=== PATIENT | male | born 1965 | race Caucasian/White ===

== ENCOUNTER 2017-10-28 11:06 | Day surgery (SDC) | payer BC ==
[2017-10-26 10:32] VITALS: BMI 29.1
[~2017-10-28 11:06] MED LIST: LACTATED RINGERS 1,000 ML IV SCH; LIDOCAINE 1% 20 ML VIAL (10MG/ML) FOR IV START INTRADERMA PRN; MIDAZOLAM 2 MG/2 ML VIAL IV PRN
[2017-10-28 12:44] VITALS: RESP 16; TEMP 97.6
[2017-10-28] MEDS ORDERED: GLYCOPYRROLATE 0.2 MG/ML 2 ML VIAL ONE (13:30)
[2017-10-28] MEDS ORDERED: PROPOFOL 10 MG/ML 20 ML VIAL IV ONE (13:30)
[2017-10-28] MEDS ORDERED: LIDOCAINE 1% INJ 10MG/ML (20 ML MDV) ONE (13:30)
--- NOTE | 2017-10-28 13:41 | P.PCN ---
Date of Procedure: 10/28/17 Procedure(s) Performed: BRIEF HISTORY: Patient is a 52-year-old, pleasant, white male, scheduled for an upper endoscopy as a part of evaluation of epigastric and right upper quadrant abdominal pain for the last 2 months duration. He status post gallbladder surgery for coronary dyskinesia in 2000 for. In the last 6 months he lost 40 pounds. His and scheduled for an upper endoscopy to evaluate further.. PROCEDURE PERFORMED: Esophagogastroduodenoscopy with biopsy. PREOPERATIVE DIAGNOSIS: Epigastric and right upper abdominal pain of 6 months duration, weight loss of 40 pounds. IV sedation per anesthesia. PROCEDURE: After informed consent was obtained, the patient was brought into the endoscopy unit. IV sedation was administered by Anesthesia under continuous monitoring. Initially the Olympus GIF-140 video endoscope was inserted into the mouth. Esophagus intubated without any difficulty. It was gradually advanced into the stomach and duodenum and carefully examined. The bulb and the second part of the duodenum appeared normal. Biopsies were done from the duodenum to rule out celiac disease. The scope at this time was withdrawn to the stomach, adequately insufflated with air, and upon careful examination, mucosa of the antrum, had mild gastritis and biopsies were done from this area. The body, cardia and the fundus appeared normal. The scope was then withdrawn into the esophagus. The GE junction was located at 39 cm from the incisors. The esophagus appeared normal. Biopsies were done from the distal esophagus. There were no erosions or ulcerations seen and the patient tolerated the procedure well. IMPRESSION: 1. Mild antral gastritis. 2. No evidence of esophagitis or peptic ulcer. RECOMMENDATIONS: The findings of this examination were discussed with the patient as well as his family. He was advised to follow with the biopsy results. He will be given a trial of Bentyl 10 mg twice daily for the abdominal pain the meantime he will continue with Prilosec on a daily basis. He 'll be seen in the office in 4 weeks..
[2017-10-28 14:00] VITALS: BP 103/64; PULSE 91
== END 2017-10-28 14:48 | disposition home or self-care (01) ==
LOC: ORWHC2ENDO 11:06
PROVIDERS: ATTEND Internal Medicine Gastroenterology
DX: K29.50 Unspecified chronic gastritis without bleeding (principal); K21.9 Gastro-esophageal reflux disease without esophagitis; I10 Essential (primary) hypertension; F17.200 Nicotine dependence, unspecified, uncomplicated; Z79.899 Other long term (current) drug therapy
CPT/HCPCS: 43239; J2001; J2704; 88305

== ENCOUNTER 2018-01-25 09:47 | Day surgery (SDC) | payer BC ==
[2018-01-23 17:26] VITALS: BMI 26.2
[~2018-01-25 09:47] MED LIST changes: -MIDAZOLAM 2 MG/2 ML VIAL IV PRN
[2018-01-25 10:49] VITALS: RESP 16; TEMP 97.8
[2018-01-25] MEDS ORDERED: PROPOFOL 10 MG/ML 20 ML VIAL IV ONE (11:21)
--- NOTE | 2018-01-25 11:48 | P.PCN ---
Date of Procedure: 01/25/18 Procedure(s) Performed: BRIEF HISTORY: Patient is a 52-year-old pleasant, white male scheduled for an elective colonoscopy as a part of follow-up of large polyp in the ileocecal valve noted on a repeat screening colonoscopy in October 2017. The polyp was partially removed and the biopsy revealed adenoma. He is hence scheduled for a surveillance colonoscopy today. PROCEDURE PERFORMED: Colonoscopy with snare polypectomy and argon plasma coagulation. PREOPERATIVE DIAGNOSIS: Follow-up large colon polyp on the ileocecal valve noted in October 2079. IV sedation per Anesthesia. PROCEDURE: After informed consent was obtained, the patient, was brought into the endoscopy unit. IV sedation was administered by Anesthesia under continuous monitoring. Digital rectal examination was normal. Initially the Olympus CF- 160 flexible video colonoscope was then inserted in the rectum, gradually advanced into the cecum without any difficulty. Careful examination was performed as the scope was gradually being withdrawn. Ileocecal valve and the appendiceal orifice were visualized and appeared normal. Prep was excellent. Mucosa of the cecumasappeared normal. On the ileocecal valve there was a 2 cm flat residual polyp identified. Part of the polyp was removed by snare polypectomy followed by argon plasma coagulation until complete obliteration of the polyp was accomplished. The ascending colon, transverse colon appeared normal. In the span flexure there was a 5 mm polyp removed by snare polypectomy. In the sigmoid colon there was another 5 mm polyp removed by snare polypectomy. the descending colon, sigmoid colon, and rectum appeared normal. Retroflexion was performed in the rectum and no lesions were seen. The patient tolerated the procedure well. IMPRESSION: 2 cm residual flat polyp on the ileocecal valve status post piecemeal snare polypectomy followed by argon plasma coagulation 5 mmpolyp in the splenic flexure polyp status post polypectomy 5 mmsigmoidolon polyp status post snare polypectomy RECOMMENDATIONS: Findings of this examination were discussed with the patient as well as his family. He was advised to follow with the biopsy results and have a repeat colonoscopy in one year
[2018-01-25 12:21] VITALS: BP 128/84; PULSE 66
== END 2018-01-25 12:26 | disposition home or self-care (01) ==
LOC: ORWHC2ENDO 09:47
PROVIDERS: ATTEND Internal Medicine Gastroenterology
DX: D12.0 Benign neoplasm of cecum (principal); D12.3 Benign neoplasm of transverse colon; K63.5 Polyp of colon; Z86.010 Personal history of colon polyps; I10 Essential (primary) hypertension; K21.9 Gastro-esophageal reflux disease without esophagitis; Z79.899 Other long term (current) drug therapy
CPT/HCPCS: 88305; 45385; 45388; J2704

== ENCOUNTER 2019-06-15 13:08 | Day surgery (SDC) | payer OTHER ==
[2019-06-13 12:34] VITALS: BMI 23.7
[~2019-06-15 13:08] MED LIST changes: +LIDOCAINE 1% (10MG/ML) FOR IV START INTRADERMA PRN; -LIDOCAINE 1% 20 ML VIAL (10MG/ML) FOR IV START INTRADERMA PRN
[2019-06-15 13:28] VITALS: TEMP 98.2
[2019-06-15] MEDS ORDERED: PROPOFOL 10 MG/ML 20 ML VIAL IV ONE (14:17)
[2019-06-15 14:51] VITALS: RESP 16
[2019-06-15 15:03] VITALS: BP 109/46; PULSE 65
--- NOTE | 2019-06-15 15:21 | P.PCN ---
Date of Procedure: 06/15/19 Procedure(s) Performed: BRIEF HISTORY: Patient is a 54-year-old pleasant male scheduled for an elective colonoscopy as a part of surveillance of ileocecal valve polyp noted on the prior colonoscopy in January 2018. PROCEDURE PERFORMED: Colonoscopy with snare polypectomy, biopsy and argon plasma coagulation. PREOPERATIVE DIAGNOSIS: Follow-up ileocecal valve polyp. IV sedation per Anesthesia. PROCEDURE: After informed consent was obtained, the patient, was brought into the endoscopy unit. IV sedation was administered by Anesthesia under continuous monitoring. Digital rectal examination was normal. Initially the Olympus CF-160 flexible video colonoscope was then inserted in the rectum, gradually advanced into the cecum without any difficulty. Careful examination was performed as the scope was gradually being withdrawn. Ileocecal valve and the appendiceal orifice were visualized and appeared normal. Prep was excellent. On the ileocecal valve there was a 2 cm residual polyp identified which was initially removed by snare polypectomy followed by biopsies and argon plasma coag ablation. Rest of the mucosa of the cecum, ascending colon, transverse colon, descending colon, sigmoid colon, and rectum appeared normal. Retroflexion was performed in the rectum and no lesions were seen. The patient tolerated the procedure well. IMPRESSION: 2 cm residual polyp on the ileocecal valve status post snare polypectomy followed by biopsy and argon plasma coagulation and almost complete polypectomy accomplished RECOMMENDATIONS: Findings of this examination were discussed with the patient as well as his family. He was advised to follow with the biopsy results and he'll be seen in office in 2 weeks. Will discuss about repeat colonoscopy in 6 months versus surgical resection..
== END 2019-06-15 15:31 | disposition home or self-care (01) ==
LOC: ORWHC2ENDO 13:08
PROVIDERS: ATTEND Internal Medicine Gastroenterology
DX: Z12.11 Encounter for screening for malignant neoplasm of colon (principal); D12.0 Benign neoplasm of cecum; Z86.010 Personal history of colon polyps; I10 Essential (primary) hypertension; K21.9 Gastro-esophageal reflux disease without esophagitis; F17.210 Nicotine dependence, cigarettes, uncomplicated; Z98.890 Other specified postprocedural states
CPT/HCPCS: 88305; 45380; 45385; 45388; J2704

== ENCOUNTER → 2019-08-17 | Outpatient (CLI) | payer OTHER ==
[2019-08-17 10:23] LABS: HCT 45.7 % (39.0-53.0); HGB 14.3 gm/dL (13.0-17.5); MCH 29.2 pg (25.0-35.0); MCHC 31.3 g/dL (31.0-37.0); MCV 93.1 fL (80.0-100.0); Mean Platelet Volume 7.5; Platelet Count 257 k/uL (150-450); RDW 12.3 % (11.5-15.5); WBC 8.4 k/uL (3.8-10.6)
[2019-08-17 10:34] LABS: ALT 15 U/L (4-49); AST 25 U/L (17-59); African American GFR (CKD) >90 (>60 ml/min/1.73 sqM); Albumin 4.3 g/dL (3.5-5.0); Alkaline Phosphatase 89 U/L (38-126); Anion Gap 8 mmol/L; Blood Urea Nitrogen 17 mg/dL (9-20); Calcium 9.5 mg/dL (8.4-10.2); Carbon Dioxide 27 mmol/L (22-30); Chloride 104 mmol/L (98-107); Glucose 100 mg/dL (74-99); Non-African American GFR(CKD) >90 (>60 ml/min/1.73 sqM); Potassium 4.6 mmol/L (3.5-5.1); Sodium 139 mmol/L (137-145); Total Bilirubin 0.6 mg/dL (0.2-1.3); Total Protein 7.6 g/dL (6.3-8.2)
== END | disposition home or self-care (01) ==
LOC: LABPAT 08:46
PROVIDERS: ATTEND Surgery Plastic and Reconstructive Surgery
DX: Z01.812 Encounter for preprocedural laboratory examination (principal)
CPT/HCPCS: 80053; 85027

== ENCOUNTER → 2019-08-24 | Outpatient (CLI) | payer OTHER | END | disposition home or self-care (01) | LOC: LABWHC1 08:40 | PROVIDERS: ATTEND Surgery Plastic and Reconstructive Surgery | DX: U07.1 COVID-19 (principal) | CPT/HCPCS: 87635 ==

== ENCOUNTER 2019-08-30 07:05 | Inpatient (IN) | payer OTHER ==
[2019-08-24 09:20] VITALS: BMI 24.5
--- NOTE | 2019-08-29 21:56 | P.GSHP ---
History of Present Illness H&P Date: 08/30/19 CHIEF COMPLAINT: History of colon adenoma. HISTORY OF PRESENT ILLNESS: Eduar Lewis is a 54-year-old male who reports 2 years ago, in 2018, developing acute onset right lower quadrant abdominal pain including intractable nausea and vomiting. He reports having his gallbladder removed back in 2003, approximately 14 years prior. He does report that his abdominal pain had been worse after eating fatty, greasy foods. As a result of moderate changes in diet, he went from 240 pounds down to 160 pounds unintentionally. His is at bedside and she also gives additional history where he had multiple studies including CT scans, chest and heart assessment including upper and lower endoscopies. His g astroenterologist is Dr. Murry, who also manages his hepatitis. Secondary to recurrent growth of a tumor along his ileocecal valve, he comes to me for initial consultation. He does report active smoking for over 30-40 years. He reports that his pain is persistent in the right lower quadrant and crampy in nature. PAST MEDICAL HISTORY: Please see list. PAST SURGICAL HISTORY: Please see list. MEDICATIONS: Please see list. ALLERGIES: Please see list. SOCIAL HISTORY: No illicit drug use FAMILY HISTORY: No reports of Crohn disease or ulcerative colitis. REVIEW OF ORGAN SYSTEMS: Additionally reports: Gastrointestinal: Reports intermittent blood in stools. He also reports fatty food intolerance. Constitutional: Unintentional weight loss from 240 pounds to 160 pounds in the last 2 years. EYES: Denies any trouble with vision. No glasses. HEENT: No difficulties with hearing. No nosebleeds. No difficulty swallowing. RESPIRATORY: Denies pneumonia. Denies any troubles with breathing or dyspnea on exertion. CARDIOVASCULAR: Denies any chest pain, palpitations, or recent heart attacks. GENITOURINARY: Denies any blood in urine or increased urinary frequency. NEUROLOGICAL: Denies any numbness or tingling along the distal extremities. No seizure disorders or headaches. MUSCULOSKELETAL: Denies any back pain, stiffness or joint arthritis. SKIN: No current skin cancer. No rash. PSYCHIATRIC: Denies current depression or suicidal thoughts. ENDOCRINE: Denies current thyroid disorders. Denies any blood sugar glucose intolerance. HEME/LYMPHATIC: Denies any lumps and bumps around the neck. No recent deep venous thrombosis. ALLERGY/IMMUNOLOGY: No immunoglobulin therapy. No immune deficiencies. BREAST: Denies current breast lumps, pain or nipple discharge. PHYSICAL EXAM: Patient is a 54-year-old male. CONSTITUTIONAL: Well developed and in no acute distress. Vitals reviewed. EYES: Conjuctivae without sclera icterus. Pupils are equally round and reactive to light. Extraocular movements grossly intact. HEAD, EARS, NOSE, THROAT: Moist buccal mucosa. Head is atraumatic, normocephalic. Hears conversational speech. No nasal drainage. NECK: Supple. No JV distention. No thyroidomegaly. RESPIRATORY: Non-labored respirations and equal bilateral excursions. No gross wheezes. CARDIOVASCULAR: Regular rate and rhythm. Extremities without moderate edema. Palpable 2+ radial pulses. ABDOMEN: No hepatomegaly. Soft. Non-tender. Nondistended. LYMPH: No neck lymphadenopathy. No axillary lymphadenopathy. MUSCULOSKELETAL: Nail and fingers with good capillary refill. SKIN: Warm and well perfused with good skin turgor. NEUROLOGIC: Cranial nerves II through XII grossly intact. Sensation upper and extremities intact. No focal or lateralizing signs. PSYCH: Appropriate affect. Alert and oriented to person, place and time. Displays appropriate insight. MEDICAL REPORT: Colonoscopy report demonstrated 2 cm tumor along the ileocecal valve with attempted resection. PATHOLOGY: Reviewed and consistent with tubular adenoma. ASSESSMENT: 1. Recurrent tubular adenoma, ileocecal valve. 2. Right lower quadrant abdominal pain. PLAN: 1. He does report that his pain is worse, especially after eating fatty greasy foods. His gallbladder is removed, however. 2. I have also recommended additional studies, particularly CT scan of the abdomen/pelvis as he may have a phenomenon of chronic appendicitis as well. 3. He is an active tobacco user, for which I have recommended complete tobacco cessation with a quit date for July 08. For optimal recovery, he will need at minimum of 4 weeks preoperative complete tobacco cessation. 4. Recommend colonoscopy for tattooing and follow-up of adenoma. Past Medical History Past Medical History: GERD/Reflux, Hypertension Additional Past Medical History / Comment(s): ABD PAIN RLQ ABD FOR FEW MONTHS. no current rx for BP since wt loss, recurrent polyp, History of Any Multi-Drug Resistant Organisms: None Reported Past Surgical History: Cholecystectomy, Orthopedic Surgery Additional Past Surgical History / Comment(s): RT ORBITAL BONE SURGERY age 7. RT knee arthroscopy. COLONOSCOPY. Past Anesthesia/Blood Transfusion Reactions: No Reported Reaction Smoking Status: Former smoker - Past Family History Mother Family Medical History: No Reported History Medications and Allergies Home Medications Medication Instructions Recorded Confirmed Type No Known Home Medications 06/13/19 08/24/19 History Allergies Allergy/AdvReac Type Severity Reaction Status Date / Time No Known Allergies Allergy Verified 08/24/19 09:11
[~2019-08-30 07:05] MED LIST changes: -LACTATED RINGERS 1,000 ML IV SCH
[2019-08-30] MEDS: LACTATED RINGERS 1,000 ML IV SCH ×2 (07:27→10:22)
--- NOTE | 2019-08-30 08:03 | P.HPADDEND ---
H&P Addendum H&P Addendum Date: 08/30/19 Patient reports chronic right lower quadrant abdominal pain. He also has history of recurrent cecal adenoma. Presents today for tattooing including right hemicolectomy for recurrent cecal adenoma. We'll proceed with colonoscopy with tattooing and possible polypectomy
--- NOTE | 2019-08-30 08:08 | P.PCN ---
Date of Procedure: 08/30/19 Description of Procedure: PREOPERATIVE DIAGNOSIS: Recurrent cecal adenoma Right lower quadrant abdominal pain POSTOPERATIVE DIAGNOSIS: Recurrent cecal adenoma Right lower quadrant abdominal pain Ascending colon adenoma OPERATION: Colonoscopy to the ileocecal valve and appendiceal orifice. Colonoscopy with hot snare polypectomy Colonoscopy with injection of Latasha ink, 3 mL SURGEON: Valery Bingham MD. ANESTHESIA: MAC. INDICATIONS: The patient is an 54-year-old male who presents with recurrent cecal adenoma including abdominal pain right lower quadrant. He had attempted resection for a cystoscopy and now presents for tattooing. Benefits and risks were described and informed consent was obtained. DESCRIPTION OF PROCEDURE: The patient had undergone Suprep. He had been brought into the operating room and laid in the left lateral decubitus position. After adequate intravenous sedation, the rectum was examined with 2% lidocaine jelly. The prostate fossa and was unremarkable. No external hemorrhoids were encountered. The rectal tone was within normal limits. No lesions were palpated in the rectal vault. An Olympus colonoscope was advanced until the ileocecal valve and appendiceal orifice were clearly viewed. The prep was excellent. No sigmoid diverticulosis was encountered. A 1 cm ascending colon adenoma was resected and snare polypectomy to completion. Careful visualization of the ileocecal valve and cecum demonstrated adequate previous resection of recurrent cecal adenoma. Along the scar bed, 3 mL Latasha ink was placed circumferentially submucosal. No evidence of focal colitis was found. Retroflexion of the scope demonstrated grade 1 internal hemorrhoids without active bleeding or inflammation. The colon was desufflated. The patient had tolerated the procedure well. Withdrawal time was over 6 minutes. FINDINGS: Aronchick preparation quality scale 1 (1-5) Internal hemorrhoids, grade 1 No external hemorrhoids No arteriovenous malformations. No sigmoid diverticulosis Ablated scar bed at ileocecal valve consistent with previous recurrent cecal adenoma without recurrence with injection of 3 mL Latasha ink Removal of 1 polyp: - Snare polypectomy proximal ascending colon, 10 mm tubulovillous adenoma polyp. No focal colitis. RECOMMENDATIONS: Repeat colonoscopy 1 year, 2020 for history of recurrent large cecal adenoma Plan - Discharge Summary Discharge Rx Participant: No New Discharge Prescriptions: No Action No Known Home Medications Discharge Medication List No Known Home Medications 06/13/19 [History]
[2019-08-30] MEDS ORDERED: SODIUM CHLORIDE 0.9% 1,000 ML IV ONE (08:11)
--- NOTE | 2019-08-30 08:13 | P.PN ---
Progress Note - Text Progress Note Date: 08/30/19 Patient reports pre-existing right lower quadrant abdominal pain with history of cecal adenoma. Recommend CT of the abdomen and pelvis. Inpatient admission for right hemicolectomy also advised
[2019-08-30] MEDS: IOPAMIDOL CONTRAST (ORAL USE) VIAL PO PRN ×2 (08:59→10:03)
--- NOTE | 2019-08-30 11:52 | CT ---
EXAMINATION TYPE: CT abdomen pelvis w con DATE OF EXAM: 08/30/2019 COMPARISON: None HISTORY: Tubular adenoma CT DLP: 1336 mGycm Automated exposure control for dose reduction was used. TECHNIQUE: Helical acquisition of images from the lung bases through the pelvis have been completed. CONTRAST: Performed with Oral Contrast and with IV Contrast, patient injected with 100 ml mL of Isovue 300. FINDINGS: Thickening of the stomach wall may be due to lack of distention but is nonspecific. LUNG BASES: No significant abnormality is appreciated. AORTA: No significant abnormality is appreciated. LIVER/GB: Liver shows multiple subcentimeter low dense foci which statistically are likely to represe nt cysts, gallbladder is absent. PANCREAS: No significant abnormality is seen. SPLEEN: No significant abnormality is seen. ADRENALS: No significant abnormality is seen. KIDNEYS: No significant abnormality is seen. REPRODUCTIVE ORGANS: Prostate shows some associated calcification. BOWEL: Nonspecific soft tissue present at the level of the ascending colon, coronal image #49, axial image #54. The appendix is normal. Terminal ileum shows some mild wall thickening possibly due to la ck of distention, axial image #68. FREE AIR: No Free Air visible. ASCITES: None visible. PELVIC ADENOPATHY: None visualized. RETROPERITONEAL ADENOPATHY: No Retroperitoneal Adenopathy visible. URINARY BLADDER: No significant abnormality is seen. OSSEOUS STRUCTURES: No significant abnormality is seen. IMPRESSION: ABNORMAL SOFT TISSUE AT THE LEVEL OF THE CECUM, ASCENDING COLON MAY CORRESPOND TO PATIENT'S KNOWN ROCHELLE GNOSIS. ADDITIONAL FINDINGS ABOVE.
[2019-08-30] MEDS: metroNIDAZOLE 500 MG TAB PO SCH ×3 (13:04→21:52)
[2019-08-30] MEDS: NEOMYCIN 500 MG TAB PO SCH ×3 (13:04→22:00)
[2019-08-30 15:45] LABS: Basophils # (A) 0.1 k/uL (0-0.2); Basophils % (A) 1 %; Eosinophils # (A) 0.4 k/uL (0-0.7); Eosinophils % (A) 4 %; HCT 44.1 % (39.0-53.0); HGB 14.1 gm/dL (13.0-17.5); Lymphocytes # (A) 2.3 k/uL (1.0-4.8); Lymphocytes % (A) 21 %; MCH 29.2 pg (25.0-35.0); MCHC 31.9 g/dL (31.0-37.0); MCV 91.7 fL (80.0-100.0); Mean Platelet Volume 7.5; Monocytes # (A) 0.6 k/uL (0-1.0); Monocytes % (A) 5 %; Neutrophils # (A) 7.6 k/uL (1.3-7.7); Neutrophils % (A) 68 %; Platelet Count 227 k/uL (150-450); RBC 4.81 m/uL (4.30-5.90); RDW 12.2 % (11.5-15.5)
[2019-08-30 15:54] LABS: ALT 20 U/L (4-49); AST 32 U/L (17-59); African American GFR (CKD) >90 (>60 ml/min/1.73 sqM); Alkaline Phosphatase 84 U/L (38-126); Anion Gap 9 mmol/L; Blood Urea Nitrogen 10 mg/dL (9-20); Calcium 9.2 mg/dL (8.4-10.2); Carbon Dioxide 22 mmol/L (22-30); Chloride 106 mmol/L (98-107); Glucose 83 mg/dL (74-99); Non-African American GFR(CKD) >90 (>60 ml/min/1.73 sqM); Potassium 3.8 mmol/L (3.5-5.1); Sodium 137 mmol/L (137-145); Total Protein 7.1 g/dL (6.3-8.2)
[2019-08-30] MEDS: SODIUM CHLORIDE 0.9% 1,000 ML IV SCH ×3 (16:27→21:53)
[2019-08-30] MEDS: TAMSULOSIN 0.4 MG CAP.ER.24H PO SCH ×2 (18:27→18:28)
[2019-08-30] MEDS ORDERED: TEMAZEPAM 15 MG CAP PO ONE (21:00)
[2019-08-31] MEDS: SODIUM CHLORIDE 0.9% 1,000 ML IV SCH ×3 (05:07→20:39)
[2019-08-31] MEDS ORDERED: metroNIDAZOLE-NS PMX 500 MG in SALINE 1 100ML.BAG IVPB ONE (06:00)
[2019-08-31] MEDS ORDERED: MELOXICAM 7.5 MG TAB PO ONE (06:00)
[2019-08-31] MEDS ORDERED: Antibiotics per Pharmacy 1 EACH MISC MISCELLANE PRN (06:00)
[2019-08-31] MEDS ORDERED: ACETAMINOPHEN TAB 500 MG TAB PO ONE (06:00)
[2019-08-31] MEDS ORDERED: ALVIMOPAN 12 MG CAPSULE PO ONE (06:00)
[2019-08-31] MEDS ORDERED: fentaNYL (PF) 50 MCG/ML 2 ML AMP ONE ×2 (06:22→07:06)
[2019-08-31] MEDS ORDERED: MIDAZOLAM 2 MG/2 ML VIAL ONE ×2 (06:22→07:06)
[2019-08-31] MEDS ORDERED: ONDANSETRON 4 MG/2 ML VIAL ONE (06:22)
[2019-08-31] MEDS ORDERED: BUPIVACAINE (PF) 0.25% 30 ML VIAL ONE (06:22)
[2019-08-31] MEDS ORDERED: DEXAMETHASONE SOD PHOS (MDV) 100 MG/10 ML VIAL ONE (06:22)
[2019-08-31] MEDS ORDERED: HEPARIN SODIUM,PORCINE 5,000 UNIT/ML 1 ML VIAL ONE (06:22)
[2019-08-31] MEDS ORDERED: metroNIDAZOLE-NS PMX 500 MG/100 ML BAG ONE (06:22)
[2019-08-31] MEDS ORDERED: ALVIMOPAN 12 MG CAPSULE ONE (06:22)
[2019-08-31] MEDS ORDERED: HEPARIN SODIUM,PORCINE 5,000 UNIT/ML 1 ML VIAL SQ ONE (07:00)
[2019-08-31] MEDS ORDERED: LIDOCAINE 1% INJ 10MG/ML (20 ML MDV) ONE (07:06)
[2019-08-31] MEDS ORDERED: SUCCINYLCHOLINE CHLORIDE 100 MG/5 ML SYR IV ONE (07:06)
[2019-08-31] MEDS ORDERED: GLYCOPYRROLATE 0.2 MG/ML 2 ML VIAL ONE (07:06)
[2019-08-31] MEDS ORDERED: NEOSTIGMINE 1 MG/ML 10 ML VIAL ONE (07:06)
[2019-08-31] MEDS ORDERED: ROCURONIUM BROMIDE 10 MG/ML 5 ML VIAL IV ONE (07:06)
[2019-08-31] MEDS ORDERED: HYDROmorphone (PF) 1 MG/ML ONE (07:06)
[2019-08-31] MEDS ORDERED: PROPOFOL 10 MG/ML 20 ML VIAL IV ONE (07:34)
[2019-08-31] MEDS ORDERED: HYDROmorphone 1 MG/ML 1 ML SYRINGE IVP ONE (10:20)
[2019-08-31] MEDS: fentaNYL (PF) 50 MCG/ML 2 ML AMP IVP ONE ×2 (10:35→11:44)
[2019-08-31] MEDS ORDERED: SODIUM CHLORIDE 0.9% 1,000 ML IV ONE ×2 (10:40)
[2019-08-31] MEDS ORDERED: KETOROLAC 30 MG/ML 1 ML VIAL IVP PRN (10:46)
[2019-08-31] MEDS ORDERED: BENZOCAINE/MENTHOL LOZENG 1 EACH LOZENGE MUCOUS MEM PRN (10:46)
[2019-08-31] MEDS ORDERED: ONDANSETRON 4 MG/2 ML VIAL IVP PRN (10:46)
--- NOTE | 2019-08-31 10:46 | P.OP ---
Date of Procedure: 08/31/19 Description of Procedure: SURGEON: TRISTAN BINGHAM MD Preoperative Diagnosis: 1. Cecal colon polyp at ileocecal valve 2. Right lower quadrant abdominal pain 3. Ascending colon adenoma Postoperative Diagnosis: 1. Cecal colon polyp at ileocecal valve 2. Right lower quadrant abdominal pain 3. Ascending colon adenoma Procedure(s) Performed: Robot-assisted daVinci Xi laparoscopic ileocolectomy with right hemicolectomy Anesthesia: GETA, local, epidural Surgeon: Tristan Bingham Estimated Blood Loss (ml): 10 Pathology: other (Right colon) Condition: stable SPECIMENS REMOVED: terminal ileum, appendix, and right colon en bloc. COMPLICATIONS: None. Disposition: floor Operative Findings: 1. Tattoo dye identified along cecum with complete resection performed 2. Highly redundant cecum with appendix resected, en bloc 3. Resection performed 5 cm proximal to the ileocecal valve 4. Lymph node identified along the ileocolic pedicle 5. White staple load for division of small bowel 6. End [id number] antiperistaltic ileocolic anastomosis 7. Right upper quadrant hepatic fossa scarred 8. No large bilateral inguinal hernias identified INDICATIONS: The patient is a 54-year-old male with history of colon polyp along the ileocecal valve. Surgical intervention with colon resection was described in detail. Benefits and risks, including infection, open surgery possibility for additional surgery was discussed at length. Informed consent was obtained. All questions of the patient and family were answered. DESCRIPTION: Earlier the patient had undergone a bowel prep using the enhanced colon recovery program. The patient was transferred to the operating room and placed in supine position. After general anesthetic, a barker catheter was placed. The abdomen was then prepped and draped in standard sterile fashion as Ioban was placed along the abdomen to minimize any contamination of skin floor. After a timeout protocol was performed, attention was then brought to the left upper quadrant whereby a 0 degree 5 mm laparoscopic trocar entry was performed. The abdominal cavity was entered and insufflated to 15 mmHg pressure, which he tolerated well. Diagnostic laparoscopy demonstrated no injury to bowel, viscera or mesentery. No metastatic or peritoneal deposits were identified. The liver was unremarkable. The tatoo was identified along the cecum. Three robotic 8-mm trocars were placed along the left lateral abdominal wall. The 5-mm port was exchanged for a 12 mm robotic port. The patient was then placed in Trendelenburg position, at least 6 with the right side up 60. The robotic da Cruz XI system was primed and docked from the left side of the patient. Using atraumatic graspers and vessel sealer, the robotic system was docked and primed as described. Instruments were interchanged by the grants assistant including graspers, needle regional company truck driver, robotic stapler and vessel sealer. Next, attention was brought to identify the cecum. A stay suture using 3-0 silk was placed along the anterior serosa along the terminal ileum. The appendix was identified and used as a handle during the case. The terminal ileum and ascending colon mesentery was mobilized using a vessel sealer whereby the colon was marked and tagged. Using robot stapler 60 mm white load, the distal ileum was divided 5 cm proximal to the ileocecal valve. The mesentery of the ascending colon was mobilized towards the midline using a vessel sealer. Next, the ascending colon was divided using the robotic stapler 60 mm blue loads. The rest of the colon mesentery was mobilized using vessel sealer including using blunt dissection. The vascular pedicle of the ileocolic artery was controlled using a vessel sealer. The proximal colon and distal ileum was brought in a end side to side antiperistaltic fashion after placing interrupted sutures along the proposed elliot -lumen using 3-0 silk. A colotomy and enterotomy were prepared along both limbs along the antimesenteric border. Next, 60 mm blue stapler loads were fired to create the elliot-lumen. The elliot-lumen was reapproximated in a horizontal buttress mattress using 3-0 silk followed by 60 mm blue load for closure of the enterostomy. All needles were removed from the abdominal cavity. The robot was undocked. I re-scrubbed into the case. Via the 12 mm port of the left upper quadrant, the right colon was removed using a 15-mm Endo Catch bag after widening the skin incision to 3-cm. All sponges were removed from the abdominal cavity. No contamination had occurred throughout this portion of the case. The fascial defect was oversewn using 0 Vicryl and Scottie Hancock. Next all pneumoperitoneum was evacuated from the abdominal cavity. The 8-mm trocar sites were reapproximated using 4-0 Monocryl in an interrupted subcuticular fashion. Local anesthetic was infiltrated to all wounds for postop analgesia. All incisions were also cleansed with diluted hydrogen peroxide. An Optifoam surgical dressing was placed over the left upper quadrant incision of the colon extraction site. Dermabond was applied to the rest of the skin incisions. The patient had tolerated the procedure well. The patient was extubated successfully. Intraoperative photos were reviewed with the patient's family who were overall pleased with the level of care. The patient was transferred to the postanesthesia care unit in stable condition.
[2019-08-31] MEDS ORDERED: ROPIVACAINE 250 MG, fentaNYL (PF) 625 MCG in SODIUM CHLORIDE 0.9% 188 ML EPIDURAL PRN (11:00)
[2019-08-31] MEDS: HYDROmorphone 1 MG/ML 1 ML SYRINGE IVP PRN ×3 (13:16→21:57)
[2019-08-31 14:11] LABS: Basophils % (A) 0 %; Eosinophils % (A) 0 %; HCT 42.3 % (39.0-53.0); HGB 13.8 gm/dL (13.0-17.5); Lymphocytes # (A) 0.3 k/uL (1.0-4.8); Lymphocytes % (A) 3 %; MCH 29.8 pg (25.0-35.0); MCHC 32.5 g/dL (31.0-37.0); MCV 91.7 fL (80.0-100.0); Mean Platelet Volume 7.8; Monocytes # (A) 0.3 k/uL (0-1.0); Monocytes % (A) 3 %; Neutrophils # (A) 10.1 k/uL (1.3-7.7); Neutrophils % (A) 94 %; Platelet Count 208 k/uL (150-450); RBC 4.62 m/uL (4.30-5.90); RDW 12.1 % (11.5-15.5); WBC 10.8 k/uL (3.8-10.6)
[2019-08-31 14:17] LABS: African American GFR (CKD) >90 (>60 ml/min/1.73 sqM); Anion Gap 6 mmol/L; Blood Urea Nitrogen 7 mg/dL (9-20); Calcium 8.7 mg/dL (8.4-10.2); Carbon Dioxide 25 mmol/L (22-30); Chloride 108 mmol/L (98-107); Glucose 112 mg/dL (74-99); Non-African American GFR(CKD) >90 (>60 ml/min/1.73 sqM); Potassium 3.9 mmol/L (3.5-5.1); Sodium 139 mmol/L (137-145)
[2019-08-31] MEDS: METOCLOPRAMIDE 5 MG/ML 2 ML VIAL IVP SCH ×3 (14:18→23:33)
[2019-08-31] MEDS: KETOROLAC 30 MG/ML 1 ML VIAL IVP SCH ×3 (14:18→23:34)
[2019-08-31] MEDS: TAMSULOSIN 0.4 MG CAP.ER.24H PO SCH ×3 (14:19→14:26)
[2019-08-31] MEDS: ACETAMINOPHEN TAB 500 MG TAB PO SCH ×3 (14:20→23:34)
[2019-08-31] MEDS ORDERED: ACETAMINOPHEN TAB 500 MG TAB PO SCH (18:00)
[2019-08-31] MEDS: HEPARIN SODIUM,PORCINE 5,000 UNIT/ML 1 ML VIAL SQ SCH (20:38)
[2019-08-31] MEDS: FAMOTIDINE 20 MG/2 ML VIAL IV SCH (20:38)
[2019-08-31] MEDS ORDERED: SODIUM CHLORIDE 0.9% 1,000 ML IV SCH (22:15)
[2019-08-31] MEDS: GABAPENTIN 300 MG CAP PO SCH (22:22)
[2019-08-31] MEDS: metroNIDAZOLE-NS PMX 500 MG in SALINE 1 100ML.BAG IVPB SCH (23:35)
[2019-09-01] MEDS: HYDROmorphone 1 MG/ML 1 ML SYRINGE IVP PRN ×2 (03:32→08:13)
[2019-09-01] MEDS: LACTATED RINGERS 1,000 ML IV SCH (05:14)
[2019-09-01] MEDS: METOCLOPRAMIDE 5 MG/ML 2 ML VIAL IVP SCH ×2 (05:19→12:30)
[2019-09-01] MEDS: metroNIDAZOLE-NS PMX 500 MG in SALINE 1 100ML.BAG IVPB SCH ×2 (05:19→12:32)
[2019-09-01] MEDS: KETOROLAC 30 MG/ML 1 ML VIAL IVP SCH ×2 (05:19→12:38)
[2019-09-01] MEDS: ACETAMINOPHEN TAB 500 MG TAB PO SCH ×2 (05:20→12:31)
[2019-09-01 07:02] LABS: Basophils % (A) 0 %; Eosinophils # (A) 0.1 k/uL (0-0.7); Eosinophils % (A) 1 %; HGB 13.6 gm/dL (13.0-17.5); Lymphocytes # (A) 2.7 k/uL (1.0-4.8); Lymphocytes % (A) 21 %; MCH 28.9 pg (25.0-35.0); MCHC 31.5 g/dL (31.0-37.0); MCV 91.8 fL (80.0-100.0); Mean Platelet Volume 7.5; Monocytes # (A) 0.7 k/uL (0-1.0); Monocytes % (A) 6 %; Neutrophils % (A) 70 %; Platelet Count 223 k/uL (150-450); RBC 4.68 m/uL (4.30-5.90); WBC 12.8 k/uL (3.8-10.6)
[2019-09-01 07:15] LABS: African American GFR (CKD) >90 (>60 ml/min/1.73 sqM); Anion Gap 7 mmol/L; Blood Urea Nitrogen 5 mg/dL (9-20); Calcium 8.9 mg/dL (8.4-10.2); Carbon Dioxide 28 mmol/L (22-30); Chloride 105 mmol/L (98-107); Glucose 99 mg/dL (74-99); Non-African American GFR(CKD) >90 (>60 ml/min/1.73 sqM); Potassium 3.5 mmol/L (3.5-5.1); Sodium 140 mmol/L (137-145)
[2019-09-01] MEDS: GABAPENTIN 300 MG CAP PO SCH ×2 (08:14→15:11)
[2019-09-01] MEDS: HEPARIN SODIUM,PORCINE 5,000 UNIT/ML 1 ML VIAL SQ SCH (08:14)
[2019-09-01] MEDS: FAMOTIDINE 20 MG/2 ML VIAL IV SCH (08:14)
[2019-09-01 08:27] VITALS: RESP 16; TEMP 97.9
[2019-09-01] MEDS ORDERED: ALVIMOPAN 12 MG CAPSULE PO SCH (09:00)
[2019-09-01] MEDS ORDERED: HYDROcodone/APAP 5-325MG 1 EACH TAB PO PRN (10:43)
--- NOTE | 2019-09-01 10:43 | P.PN ---
Subjective Progress Note Date: 09/01/19 Principal diagnosis: right colectomy Patient doing well today. Complaining of mild discomfort. Did pass flatus. Denies nausea or vomiting. Pain earlier in the evening was 8 out of 10 however much improved. Patient would like to go home today. White blood cell count 12.8. Tolerating clear liquids. Objective - Vital Signs Vital signs: Vital Signs Temp 97.9 F 09/01/19 08:00 Pulse 64 09/01/19 08:00 Resp 16 09/01/19 08:00 BP 132/69 09/01/19 08:00 Pulse Ox 97 09/01/19 08:00 Intake & Output 08/31/19 09/01/19 09/01/19 18:59 06:59 18:59 Intake Total 2720 540 360 Output Total 1410 Balance 1310 540 360 Weight 82.3 kg Intake: IV 2300 Oral 420 540 360 Output: Urine 1400 Estimated Blood Loss 10 Other: Voiding Method Indwelling Catheter # Voids 3 - Exam Abdomen: Soft, nondistended, mild incisional tenderness, dressings clean and dry - Labs CBC & Chem 7: 09/01/19 06:45 09/01/19 06:45 Labs: Abnormal Lab Results - Last 24 Hours (Table) 08/31/19 08/31/19 09/01/19 Range/Units 13:38 13:38 06:45 WBC 10.8 H 12.8 H (3.8-10.6) k/uL Neutrophils # 10.1 H 9.0 H (1.3-7.7) k/uL Lymphocytes # 0.3 L (1.0-4.8) k/uL Chloride 108 H (98-107) mmol/L BUN 7 L (9-20) mg/dL Glucose 112 H (74-99) mg/dL 09/01/19 Range/Units 06:45 WBC (3.8-10.6) k/uL Neutrophils # (1.3-7.7) k/uL Lymphocytes # (1.0-4.8) k/uL Chloride (98-107) mmol/L BUN 5 L (9-20) mg/dL Glucose (74-99) mg/dL Assessment and Plan Plan: Will increase diet to full liquids. Will add oral pain medication. Possible discharge later today or tomorrow.
[2019-09-01 12:54] VITALS: BP 156/70; PULSE 62
--- NOTE | 2019-09-01 18:07 | P.DS ---
Providers Date of admission: 08/31/19 13:24 Expected date of discharge: 09/01/19 Attending physician: Valery Bingham Primary care physician: Tomasa Liao - Discharge Diagnosis(es) (1) Adenoma of cecum Current Visit: Yes Status: Acute (2) Right lower quadrant abdominal pain Current Visit: Yes Status: Acute (3) Adenoma of ascending colon Current Visit: Yes Status: Acute Hospital Course: HISTORY OF PRESENT ILLNESS: Eduar Lewis is a 54-year-old male who comes in with recurrent cecal adenoma despite previous resections. He also reports right lower quadrant abdominal pain with unintentional weight loss. He had a colonoscopy with tattoo and polypectomy. CT of the abdomen pelvis demonstrated redundant cecum with defect along the cecum. He had robotic right hemicolectomy, 08/31/19 with passage of flatus prior to discharge. He pain was managed. Prior to discharge he was tolerating full liquid diet. Patient Condition at Discharge: Stable Plan - Discharge Summary Discharge Rx Participant: No New Discharge Prescriptions: New Hydrocodone/Acetaminophen [[place] 5-325] 1 tab PO Q6HR PRN 3 Days #10 tab PRN Reason: Pain Ibuprofen [Motrin] 600 mg PO Q8HR PRN #30 tab PRN Reason: Pain Acetaminophen Tab [Tylenol Tab] 1,000 mg PO Q6HR PRN #30 tablet PRN Reason: Pain Discharge Medication List Acetaminophen Tab [Tylenol Tab] 1,000 mg PO Q6HR PRN #30 tablet 09/01/19 [Rx] Hydrocodone/Acetaminophen [[place] 5-325] 1 tab PO Q6HR PRN 3 Days #10 tab 09/01/19 [Rx] Ibuprofen [Motrin] 600 mg PO Q8HR PRN #30 tab 09/01/19 [Rx] Follow up Appointment(s)/Referral(s): Valery Bingham MD [STAFF PHYSICIAN] - 09/04/19 (Please call to confirm time) Patient Instructions/Handouts: Colectomy (DC), Laparoscopic Bowel Resection (DC), Colectomy Diet (DC) Activity/Diet/Wound Care/Special Instructions: Expect blood in your first few bowel movements. This is normal! Continue liquid diet until seen in office. Drink protein shakes such as Whey protein powder, Muscle milk three servings a day for total of 80+ grams daily for optimal healing. Wear abdominal binder at all times No lifting over 4 pounds in 4 weeks until September 30. August shower. No bath tub soaks for two weeks until September 13 Diet as tolerated. No driving while on narcotics. Use Tylenol and ibuprofen scheduled for the next 24-48 hours for best pain relief. Use ice along incisions for the today to prevent swelling. Discharge Disposition: HOME SELF-CARE
== END 2019-09-01 17:27 | disposition home or self-care (01) | DRG 331 ==
LOC: ORWHC2ENDO 07:05 → EDSTATUS 07:30 → 3SCARD 13:45 → ORWHC2ENDO 08-31 13:22 → 3SCARD 08-31 13:24
PROVIDERS: ADMIT Surgery Plastic and Reconstructive Surgery; ATTEND Surgery Plastic and Reconstructive Surgery
PROC: 0DTF4ZZ Resection of Right Large Intestine, Percutaneous Endoscopic Approach (ICD-10-PCS; principal; 2019-08-30 07:30)
PROC: 0DBK8ZZ Excision of Ascending Colon, Via Natural or Artificial Opening Endoscopic (ICD-10-PCS; principal; 2019-08-30 07:30)
PROC: 8E0W4CZ Robotic Assisted Procedure of Trunk Region, Percutaneous Endoscopic Approach (ICD-10-PCS; principal; 2019-08-30 07:30)
DX: D12.0 Benign neoplasm of cecum (principal); K75.9 Inflammatory liver disease, unspecified; D12.2 Benign neoplasm of ascending colon; I10 Essential (primary) hypertension; K64.8 Other hemorrhoids; K21.9 Gastro-esophageal reflux disease without esophagitis; R63.4 Abnormal weight loss; Z87.19 Personal history of other diseases of the digestive system; Z86.010 Personal history of colon polyps; Z87.891 Personal history of nicotine dependence
CPT/HCPCS: 36415; 45381; 45385; 74177; 80048; 80053; 85025; 86850; 86900; 86901; 88305; 88309

== ENCOUNTER → 2020-10-29 | Day surgery (SDC) | payer OTHER ==
[2020-10-24 15:21] VITALS: BMI 28.5
[~2020-10-29] MED LIST changes: +DEXAMETHASONE SOD PHOSPHATE 4 MG/ML 1 ML VIAL IV ONE; +HYDROmorphone 0.5 MG/0.5 ML SYRINGE IVP PRN; +LACTATED RINGERS 1,000 ML IV SCH; +LIDOCAINE 1% INJ 10MG/ML (20 ML MDV) ONE; +METOCLOPRAMIDE 5 MG/ML 2 ML VIAL IVP PRN; +MIDAZOLAM 2 MG/2 ML VIAL IV PRN; +ONDANSETRON 4 MG/2 ML VIAL IVP ONE; +PROPOFOL 10 MG/ML 20 ML VIAL IV ONE
--- NOTE | 2020-10-29 08:17 | P.GSHP ---
History of Present Illness H&P Date: 10/29/20 CHIEF COMPLAINT: Colon screen HISTORY OF PRESENT ILLNESS: The patient is a 55-year-old male who presents for colon screen. Lower endoscopy was offered for further evaluation and management. PAST MEDICAL HISTORY: Please see list. PAST SURGICAL HISTORY: Please see list. MEDICATIONS: Please see list. ALLERGIES: Please see list. SOCIAL HISTORY: No illicit drug use FAMILY HISTORY: No reports of Crohn disease or ulcerative colitis. REVIEW OF ORGAN SYSTEMS: CONSTITUTIONAL: No reports of fevers or chills. PHYSICAL EXAM: VITAL SIGNS: Stable GENERAL: Well-developed pleasant in no acute distress. HEENT: No scleral icterus. Extraocular movements grossly intact. Moist buccal mucosa. NECK: Supple without lymphadenopathy. CHEST: Unlabored respirations. Equal bilateral excursions. CARDIOVASCULAR: Regular rate and rhythm. Distal 2+ pulses. ABDOMEN: Soft, nontender, nondistended. MUSCULOSKELETAL: No clubbing, cyanosis, or edema. ASSESSMENT: 1. Colon screen. PLAN: 1. Recommend proceeding with a lower endoscopy Past Medical History Past Medical History: GERD/Reflux Additional Past Medical History / Comment(s): no current rx for BP since wt loss, recurrent polyp, History of Any Multi-Drug Resistant Organisms: None Reported Past Surgical History: Bowel Resection, Cholecystectomy, Orthopedic Surgery Additional Past Surgical History / Comment(s): RT ORBITAL BONE SURGERY age 7. RT knee arthroscopy. COLONOSCOPY. Past Anesthesia/Blood Transfusion Reactions: No Reported Reaction Smoking Status: Current every day smoker - Past Family History Mother Family Medical History: No Reported History Medications and Allergies Home Medications Medication Instructions Recorded Confirmed Type Multivit,Calc,Min/FA/K1/Lycop 1 each PO DAILY 10/24/20 10/24/20 History [One-A-Day Men's Complete Tab] Allergies Allergy/AdvReac Type Severity Reaction Status Date / Time No Known Allergies Allergy Verified 10/24/20 15:15
[2020-10-29 10:25] VITALS: TEMP 97.5
[2020-10-29 11:18] VITALS: RESP 16
[2020-10-29 11:33] VITALS: BP 102/68; PULSE 69
--- NOTE | 2020-10-29 11:35 | P.PCN ---
Date of Procedure: 10/29/20 Description of Procedure: PREOPERATIVE DIAGNOSIS: Personal history ascending colon adenoma status post resection Status post right hemicolectomy POSTOPERATIVE DIAGNOSIS: Status post right hemicolectomy Ascending colon adenoma OPERATION: Colonoscopy to the ileocolic anastomosis Colonoscopy with hot snare polypectomy SURGEON: Valery Bingham MD. ANESTHESIA: MAC. INDICATIONS: The patient is an 55-year-old male who presents with personal history of large cecal adenoma status post resection over one year ago. He presents for colonic surveillance. Benefits and risks were described and informed consent was obtained. DESCRIPTION OF PROCEDURE: The patient had undergone Sutab prep. The patient had been brought into the operating room and laid in the left lateral decubitus position. After adequate intravenous sedation, the rectum was examined with 2% lidocaine jelly. The prostate was unremarkable. No external hemorrhoids were encountered. The rectal tone was within normal limits. No lesions were palpated in the rectal vault. An Olympus colonoscope was advanced ileocolic anastomosis was clearly viewed. The prep was good. No sigmoid diverticulosis was encountered. Colonic polyps were found and removed. No evidence of focal colitis was found. Retroflexion of the scope demonstrated grade 1 internal hemorrhoids without active bleeding or inflammation. The colon was desufflated. The patient had tolerated the procedure well. Withdrawal time was over 6 minutes. FINDINGS: Aronchick preparation quality scale 2 (1-5) Internal hemorrhoids, grade 1 No external hemorrhoids No arteriovenous malformations. No sigmoid diverticulosis Removal of 2 polyps: - Snare polypectomy ascending colon portion of ileocolic anastomosis, 5 mm tubulovillous adenoma polyp. No focal colitis. RECOMMENDATIONS: Repeat colonoscopy 2021 Plan - Discharge Summary Discharge Rx Participant: No New Discharge Prescriptions: Continue Multivit,Calc,Min/FA/K1/Lycop [One-A-Day Men's Complete Tab] 1 each PO DAILY Discharge Medication List Multivit,Calc,Min/FA/K1/Lycop [One-A-Day Men's Complete Tab] 1 each PO DAILY 10/24/20 [History] Follow up Appointment(s)/Referral(s): Valery Bingham MD [STAFF PHYSICIAN] - As Needed Patient Instructions/Handouts: *Surgery [facility] - (Anesthesia) Endoscopy Discharge Instructions, Colorectal Polyps (DC) Activity/Diet/Wound Care/Special Instructions: Repeat colonoscopy 2021 Discharge Disposition: HOME SELF-CARE
== END | disposition home or self-care (01) ==
LOC: ORWHC2ENDO 09:46
PROVIDERS: ATTEND Surgery Plastic and Reconstructive Surgery
DX: Z12.11 Encounter for screening for malignant neoplasm of colon (principal); D12.2 Benign neoplasm of ascending colon; Z86.010 Personal history of colon polyps; K21.9 Gastro-esophageal reflux disease without esophagitis; Z90.49 Acquired absence of other specified parts of digestive tract; Z98.890 Other specified postprocedural states; F17.210 Nicotine dependence, cigarettes, uncomplicated; K64.0 First degree hemorrhoids; Z97.2 Presence of dental prosthetic device (complete) (partial)
CPT/HCPCS: 88305; 45385; J2001; J2704

== ENCOUNTER 2021-11-10 08:03 | Day surgery (SDC) | payer OTHER ==
[2021-11-06 15:18] VITALS: BMI 27.8
[~2021-11-10 08:03] MED LIST changes: -DEXAMETHASONE SOD PHOSPHATE 4 MG/ML 1 ML VIAL IV ONE; -HYDROmorphone 0.5 MG/0.5 ML SYRINGE IVP PRN; -LIDOCAINE 1% INJ 10MG/ML (20 ML MDV) ONE; -METOCLOPRAMIDE 5 MG/ML 2 ML VIAL IVP PRN; -MIDAZOLAM 2 MG/2 ML VIAL IV PRN; -ONDANSETRON 4 MG/2 ML VIAL IVP ONE; -PROPOFOL 10 MG/ML 20 ML VIAL IV ONE
[2021-11-10] MEDS ORDERED: LACTATED RINGERS 1,000 ML IV ONE (08:39)
[2021-11-10 08:41] VITALS: RESP 16; TEMP 97.9
[2021-11-10] MEDS ORDERED: PROPOFOL 10 MG/ML 20 ML VIAL IV ONE (09:26)
[2021-11-10] MEDS ORDERED: LIDOCAINE 2% INJ 20 MG/ML (2 ML VIAL) ONE (09:26)
--- NOTE | 2021-11-10 09:48 | P.PCN ---
Date of Procedure: 11/10/21 Procedure(s) Performed: BRIEF HISTORY: Patient is a 56-year-old pleasant male scheduled for an elective colonoscopy as a part of evaluation of prior history of colon polyps. He had large ileocecal valve polyp formation underwent surgical resection 2 years ago. PROCEDURE PERFORMED: Colonoscopy with biopsy. PREOPERATIVE DIAGNOSIS: History of colon polyps. IV sedation per Anesthesia. PROCEDURE: After informed consent was obtained, the patient, was brought into the endoscopy unit. IV sedation was administered by Anesthesia under continuous monitoring. Digital rectal examination was normal. Initially the Olympus CF-160 flexible video colonoscope was then inserted in the rectum, gradually advanced into the right colon without any difficulty. Careful examination was performed as the scope was gradually being withdrawn. The ileocolic anastomosis was visualized and appeared normal. At the anastomosis there was a 4-5 mm sessile polyp that was removed by cold biopsy. Mucosa of the transverse colon, descending colon, sigmoid colon, and rectum appeared normal. In the sigmoid colon there was a 5 limited polyp removed by cold biopsy. In the rectum there was a 3 mm polyp removed by cold biopsy. Retroflexion was performed in the rectum and no lesions were seen. The patient tolerated the procedure well. IMPRESSION: 5 mm polyp just proximal to the ileocolic anastomosis status post removal by cold biopsy 4-5 limited sigmoid: Polyp status post cold biopsy 3 mm distal rectal polyp status post cold biopsy RECOMMENDATIONS: Findings of this examination were discussed with the patient as his family. He was advised to follow with the biopsy results. If the biopsy reveals adenoma he can have a repeat colonoscopy in 3 years..
[2021-11-10 10:13] VITALS: BP 122/84; PULSE 60
== END 2021-11-10 10:25 | disposition home or self-care (01) ==
LOC: ORWHC2ENDO 08:03
PROVIDERS: ATTEND Internal Medicine Gastroenterology
DX: Z12.11 Encounter for screening for malignant neoplasm of colon (principal); K63.5 Polyp of colon; K62.1 Rectal polyp; Z86.010 Personal history of colon polyps; F17.210 Nicotine dependence, cigarettes, uncomplicated; Z97.2 Presence of dental prosthetic device (complete) (partial); Z90.49 Acquired absence of other specified parts of digestive tract; Z98.890 Other specified postprocedural states
CPT/HCPCS: 88305; 45380; J2704; J2001